=== PATIENT | female | born 1995 | race Caucasian/White ===

== ENCOUNTER 2017-08-20 17:48 | Emergency (ER) | payer MEDICARE, MEDICAID ==
[~2017-08-20] VITALS: Ht 152.4 cm; Wt 42.6 kg
[~2017-08-20 17:48] MED LIST: ACYCLOVIR 400400 MG PO; ADVAIR; ALBUTEROL; AMLODIPINE BESY10 MG PO; AUGMENTIN 875875 MG PO; AZITHROMYCIN 2250 MG PO; BINDER TOP; CATAPRES0.1 MG PO; CEFUROXIME250 MG PO; CLONIDINE HCL0.3 M3 PO; DOXYCYCLINE 10100 MG PO; HYDROCODONE-AP1 EAC6 PO; LEVAQUIN 500 M500 M2 PO; LEVAQUIN 500 M500 MG PO; LIDOCAINE VISC100 ML TOP; LOPRESSOR25 PO; MEDROLDOSEPACK PO; NOHOMEMEDICATIONS; NORCO 5-325 TA1 EACH PO; NORVASC5 MG PO; PERCOCET 5-3251 EACH PO; PREDNISONE 10 M10 MG PO; REGLAN 10 MG TA10 MG PO; RENVELA800 MG PO; TRAMADOL 50 MG50 MG PO; TRIAMCINOLONE A15 G2 TP; UNICOMPLEX M TA1 TA1 PO; VENTOLIN HFA 1818 GM INH; VOLTAREN GEL 1100 G2 TOP; ZANTAC 150MG T150 MG PO; ZOFRAN ODT4 MG PO
[2017-08-20] MEDS ORDERED: DOXYCYCLINE 10100 MG PO (18:07)
[2017-08-20] MEDS ORDERED: ENOXAPARIN30 MG/0.3 SUBQ (18:08)
[2017-08-20 18:50] LABS: HEMATOCRIT 29.8 % (37.0-47.0); HEMOGLOBIN 9.4 gm/dL (12.0-15.0); MCH 28.1 pg (26.0-34.0); MCHC 31.6 g/dL (28.0-37.0); NUCLEATED RBCS 0 /100WBC; PLATELET COUNT* 330 thou/uL (150-400); RBC 3.35 mil/uL (4.20-5.00); RDW-CV 24.3 % (10.5-14.5); WBC 6.2 thou/uL (4.0-11.0)
[2017-08-20 18:59] LABS: APTT 28.9 Seconds (25.0-31.3); CALCIUM 10.4 mg/dL (8.5-10.1); CREATININE 3.5 mg/dL (0.6-1.3); INR 1.2; POTASSIUM 4.6 mmol/L (3.5-5.1); PROTIME 11.5 Seconds (9.20-11.50)
[2017-08-20 19:03] LABS: TOTAL BILIRUBIN 0.6 mg/dL (<0.1-1.0); TOTAL PROTEIN 7.7 g/dL (6.4-8.2)
[2017-08-20 19:12] VITALS: BP 175/126
[2017-08-20 19:25] LABS: ABSOLUTE LYMPHOCYTES 0.7 thou/uL (0.8-5.3); ABSOLUTE MONOCYTES 0.2 thou/uL (0.0-1.2); ABSOLUTE NEUTROPHILS 5.3 thou/uL (1.6-8.1); ANISOCYTOSIS 1+; HYPOCHROMASIA 1+; MICROCYTES 1+; PLATELET ESTIMATE ADEQUATE
== END 2017-08-20 19:15 | disposition home or self-care (01) ==
LOC: M.ERS 17:48
PROVIDERS: Physician Assistant
DX: S71.111A Laceration without foreign body, right thigh, initial encounter (principal); I12.0 Hypertensive chronic kidney disease with stage 5 chronic kidney disease or end stage renal disease; N18.6 End stage renal disease; J45.909 Unspecified asthma, uncomplicated; F32.9 Major depressive disorder, single episode, unspecified; F17.210 Nicotine dependence, cigarettes, uncomplicated; Z99.2 Dependence on renal dialysis; Z87.01 Personal history of pneumonia (recurrent); Z91.040 Latex allergy status; X58.XXXA Exposure to other specified factors, initial encounter; Y93.89 Activity, other specified; Y92.89 Other specified places as the place of occurrence of the external cause; Y99.8 Other external cause status

== ENCOUNTER 2017-09-12 21:37 | Emergency (ER) | payer MEDICARE, MEDICAID ==
[~2017-09-12] VITALS: Ht 152.4 cm; Wt 49.4 kg
[~2017-09-12 21:37] MED LIST changes: +ENOXAPARIN30 MG/0.3 SUBQ
[2017-09-12 23:03] LABS: ABSOLUTE BASOPHILS 0.1 thou/uL (0.0-0.2); ABSOLUTE EOSINOPHILS 0.1 thou/uL (0.0-0.7); ABSOLUTE LYMPHOCYTES 0.9 thou/uL (0.8-5.3); ABSOLUTE MONOCYTES 0.4 thou/uL (0.0-1.2); ABSOLUTE NEUTROPHILS 3.4 thou/uL (1.6-8.1); BASOPHILS 2.1 %; EOSINOPHILS 1.9 %; HEMATOCRIT 32.6 % (37.0-47.0); HEMOGLOBIN 10.6 gm/dL (12.0-15.0); LYMPHOCYTES 18.5 %; MCH 31.7 pg (26.0-34.0); MCHC 32.5 g/dL (28.0-37.0); MCV 97.7 fL (80.0-100.0); MONOCYTES 8.7 %; MPV 7.9 fl. (7.2-11.1); NUCLEATED RBCS 0 /100WBC; PLATELET COUNT* 200 thou/uL (150-400); POLYS 68.8 %; RBC 3.34 mil/uL (4.20-5.00); RDW-CV 24.2 % (10.5-14.5); WBC 4.9 thou/uL (4.0-11.0)
[2017-09-12 23:07] LABS: CALCIUM 9.5 mg/dL (8.5-10.1); CREATININE 4.1 mg/dL (0.6-1.3); POTASSIUM 3.6 mmol/L (3.5-5.1)
[2017-09-13 00:03] LABS: ANISOCYTOSIS 1+; MACROCYTES Occasional; MICROCYTES Occasional; OVALOCYTES Occasional; POIKILOCYTOSIS 1+; SCHISTOCYTES Occasional
[2017-09-13 02:16] VITALS: BP 160/115
== END 2017-09-13 02:18 | disposition home or self-care (01) ==
LOC: M.ERS 21:37
PROVIDERS: Personal Emergency Response Attendant
DX: Z48.01 Encounter for change or removal of surgical wound dressing (principal); J45.909 Unspecified asthma, uncomplicated; F32.9 Major depressive disorder, single episode, unspecified; I12.0 Hypertensive chronic kidney disease with stage 5 chronic kidney disease or end stage renal disease; N18.6 End stage renal disease; F17.210 Nicotine dependence, cigarettes, uncomplicated; Z91.040 Latex allergy status

== ENCOUNTER 2017-10-04 17:15 | Emergency (ER) | payer MEDICARE, MEDICAID ==
[~2017-10-04] VITALS: Ht 152.4 cm; Wt 47.6 kg
[2017-10-04 18:05] VITALS: BP 207/152
== END 2017-10-04 18:07 | disposition home or self-care (01) ==
LOC: M.ERS 17:15
DX: R10.2 Pelvic and perineal pain (principal); J45.909 Unspecified asthma, uncomplicated; F32.9 Major depressive disorder, single episode, unspecified; I12.0 Hypertensive chronic kidney disease with stage 5 chronic kidney disease or end stage renal disease; N18.6 End stage renal disease; F17.210 Nicotine dependence, cigarettes, uncomplicated; Z99.2 Dependence on renal dialysis; Z91.041 Radiographic dye allergy status

== ENCOUNTER 2017-10-29 14:54 | Emergency (ER) | payer MEDICARE, MEDICAID ==
[~2017-10-29] VITALS: Ht 152.4 cm; Wt 47.6 kg
[2017-10-29 15:54] VITALS: BP 176/125
== END 2017-10-29 15:55 | disposition home or self-care (01) ==
LOC: M.ERS 14:54
DX: M79.602 Pain in left arm (principal); J45.909 Unspecified asthma, uncomplicated; I12.0 Hypertensive chronic kidney disease with stage 5 chronic kidney disease or end stage renal disease; N18.6 End stage renal disease; Z99.2 Dependence on renal dialysis; F17.210 Nicotine dependence, cigarettes, uncomplicated; Z91.040 Latex allergy status

== ENCOUNTER 2017-11-21 19:59 | Emergency (ER) | payer MEDICARE, MEDICAID ==
[~2017-11-21] VITALS: Ht 154.9 cm; Wt 49.9 kg
[2017-11-21] MEDS ORDERED: ACYCLOVIR 400400 MG PO (20:12)
[2017-11-21 20:36] LABS: ABSOLUTE BASOPHILS 0.1 thou/uL (0.0-0.2); ABSOLUTE LYMPHOCYTES 1.3 thou/uL (0.8-5.3); ABSOLUTE MONOCYTES 0.5 thou/uL (0.0-1.2); ABSOLUTE NEUTROPHILS 3.1 thou/uL (1.6-8.1); BASOPHILS 1.5 %; HEMATOCRIT 39.6 % (37.0-47.0); HEMOGLOBIN 12.5 gm/dL (12.0-15.0); MCHC 31.5 g/dL (28.0-37.0); MCV 92.2 fL (80.0-100.0); MONOCYTES 10.6 %; MPV 8.3 fl. (7.2-11.1); NUCLEATED RBCS 0 /100WBC; PLATELET COUNT* 205 thou/uL (150-400); POLYS 61.9 %; RDW-CV 17.1 % (10.5-14.5)
[2017-11-21 20:41] LABS: CALCIUM 10.6 mg/dL (8.5-10.1); CREATININE 5.3 mg/dL (0.6-1.3); POTASSIUM 5.1 mmol/L (3.5-5.1)
[2017-11-21 20:46] LABS: ALBUMIN 3.4 g/dL (3.4-5.0); TOTAL BILIRUBIN 0.8 mg/dL (<0.1-1.0); TOTAL PROTEIN 7.5 g/dL (6.4-8.2)
[2017-11-21 22:15] VITALS: BP 186/140
== END 2017-11-21 22:18 | disposition home or self-care (01) ==
LOC: M.ERS 19:59
PROVIDERS: Emergency Medicine
DX: R10.13 Epigastric pain (principal); R10.33 Periumbilical pain; I10 Essential (primary) hypertension; J45.909 Unspecified asthma, uncomplicated; N18.6 End stage renal disease; F32.9 Major depressive disorder, single episode, unspecified; F17.210 Nicotine dependence, cigarettes, uncomplicated; Z91.040 Latex allergy status; Z99.2 Dependence on renal dialysis

== ENCOUNTER 2018-03-26 13:11 | Inpatient (IN) | payer MEDICARE, MEDICAID ==
[~2018-03-26] VITALS: Ht 165.1 cm; Wt 49.9 kg
--- NOTE | ~2018-03-26 | PROC ---
[facility] [address] [place] [address] PROCEDURE REPORT Name: CALSO ROSARIO Room: [address] IN .R.#: [id number] Admission: 03/26/18 Attend Phys: Ravi Brown, Discharge: Date of : 94 Report #: [id number] THIS REPORT FOR: //name// For GI report, please see the Provation report in Perceptive 7 content. By: [id number] Records Staff JULIETTE /LIDYA
[2018-03-26 13:26] VITALS: BP 212/157
[2018-03-26 13:59] LABS: ABSOLUTE BASOPHILS 0.1 thou/uL (0.0-0.2); ABSOLUTE EOSINOPHILS 0.1 thou/uL (0.0-0.7); ABSOLUTE LYMPHOCYTES 1.1 thou/uL (0.8-5.3); ABSOLUTE MONOCYTES 0.6 thou/uL (0.0-1.2); ABSOLUTE NEUTROPHILS 5.6 thou/uL (1.6-8.1); EOSINOPHILS 1.3 %; HEMATOCRIT 36.6 % (37.0-47.0); HEMOGLOBIN 11.5 gm/dL (12.0-15.0); LYMPHOCYTES 14.3 %; MCH 28.9 pg (26.0-34.0); MCHC 31.3 g/dL (28.0-37.0); MCV 92.6 fL (80.0-100.0); MONOCYTES 7.5 %; MPV 8.4 fl. (7.2-11.1); NUCLEATED RBCS 0 /100WBC; PLATELET COUNT* 267 thou/uL (150-400); POLYS 74.9 %; RBC 3.96 mil/uL (4.20-5.00); RDW-CV 17.6 % (10.5-14.5); WBC 7.5 thou/uL (4.0-11.0)
[2018-03-26 14:06] LABS: CALCIUM 9.7 mg/dL (8.5-10.1); CREATININE 6.1 mg/dL (0.6-1.3); POTASSIUM 4.7 mmol/L (3.5-5.1)
[2018-03-26 14:11] LABS: ALBUMIN 3.6 g/dL (3.4-5.0); MAGNESIUM 2.1 mg/dL (1.8-2.4); TOTAL PROTEIN 7.9 g/dL (6.4-8.2)
[2018-03-26] MEDS ORDERED: HYDROCODON-ACE1 EAC7 PO (16:57)
[2018-03-26 17:54] VITALS: BP 133/94
[2018-03-26 20:15] VITALS: BP 130/98
[2018-03-26 20:35] VITALS: BP 155/116
[2018-03-26 22:30] VITALS: BP 212/157
[2018-03-26 23:30] VITALS: BP 183/127
[2018-03-27] VITALS (25 sets, daily range): BP systolic 132–203; BP diastolic 66–121
[2018-03-27 04:49] LABS: BE -3.3 mmol/L (-2 to +3); HCO3 19.1 mmol/L (22.0-26.0); PCO2 26.8 mmHg (35.0-45.0); PO2 64.1 mmHg (75.0-100.0)
[2018-03-27 04:54] LABS: ABSOLUTE BASOPHILS 0.1 thou/uL (0.0-0.2); ABSOLUTE LYMPHOCYTES 0.9 thou/uL (0.8-5.3); ABSOLUTE NEUTROPHILS 7.3 thou/uL (1.6-8.1); BASOPHILS 0.7 %; EOSINOPHILS 0.1 %; HEMOGLOBIN 11.2 gm/dL (12.0-15.0); LYMPHOCYTES 10.1 %; MCH 29.3 pg (26.0-34.0); MCHC 31.2 g/dL (28.0-37.0); MCV 93.8 fL (80.0-100.0); MONOCYTES 10.7 %; MPV 8.6 fl. (7.2-11.1); NUCLEATED RBCS 0 /100WBC; PLATELET COUNT* 250 thou/uL (150-400); POLYS 78.4 %; RBC 3.83 mil/uL (4.20-5.00); WBC 9.3 thou/uL (4.0-11.0)
[2018-03-27 05:18] LABS: CALCIUM 9.5 mg/dL (8.5-10.1)
[2018-03-27 05:53] LABS: POTASSIUM 6.2 mmol/L (3.5-5.1)
[2018-03-27 13:14] LABS: ABSOLUTE BASOPHILS 0.1 thou/uL (0.0-0.2); ABSOLUTE EOSINOPHILS 0.1 thou/uL (0.0-0.7); ABSOLUTE LYMPHOCYTES 1.5 thou/uL (0.8-5.3); ABSOLUTE MONOCYTES 0.8 thou/uL (0.0-1.2); ABSOLUTE NEUTROPHILS 4.5 thou/uL (1.6-8.1); BASOPHILS 1.2 %; EOSINOPHILS 0.9 %; HEMATOCRIT 32.1 % (37.0-47.0); HEMOGLOBIN 10.2 gm/dL (12.0-15.0); LYMPHOCYTES 21.3 %; MCH 29.3 pg (26.0-34.0); MCHC 31.7 g/dL (28.0-37.0); MCV 92.5 fL (80.0-100.0); MONOCYTES 11.4 %; MPV 8.9 fl. (7.2-11.1); NUCLEATED RBCS 0 /100WBC; PLATELET COUNT* 247 thou/uL (150-400); POLYS 65.2 %; RBC 3.47 mil/uL (4.20-5.00); RDW-CV 17.8 % (10.5-14.5); WBC 6.9 thou/uL (4.0-11.0)
[2018-03-27 13:20] LABS: APTT 29.3 Seconds (25.0-31.3); CREATININE 7.4 mg/dL (0.6-1.3); INR 2.1; PROTIME 20.7 Seconds (9.20-11.50)
[2018-03-27 13:24] LABS: ALBUMIN 2.8 g/dL (3.4-5.0); MAGNESIUM 2.1 mg/dL (1.8-2.4); PHOSPHORUS* 8.6 mg/dL (2.5-4.9); TOTAL BILIRUBIN 1.2 mg/dL (<0.1-1.0); TOTAL PROTEIN 6.2 g/dL (6.4-8.2)
[2018-03-27 17:48] LABS: CREATININE 4.5 mg/dL (0.6-1.3); POTASSIUM 3.5 mmol/L (3.5-5.1)
[2018-03-28] VITALS (11 sets, daily range): BP systolic 118–206; BP diastolic 66–89
[2018-03-28 06:01] LABS: HEMATOCRIT 31.4 % (37.0-47.0); MCH 29.4 pg (26.0-34.0); MCHC 31.9 g/dL (28.0-37.0); MPV 8.2 fl. (7.2-11.1); RBC 3.41 mil/uL (4.20-5.00); RDW-CV 17.9 % (10.5-14.5); WBC 5.8 thou/uL (4.0-11.0)
[2018-03-28 06:33] LABS: ALBUMIN 2.5 g/dL (3.4-5.0); CALCIUM 8.1 mg/dL (8.5-10.1); CREATININE 5.2 mg/dL (0.6-1.3); MAGNESIUM 1.9 mg/dL (1.8-2.4); PHOSPHORUS* 6.2 mg/dL (2.5-4.9); POTASSIUM 3.8 mmol/L (3.5-5.1); TOTAL BILIRUBIN 0.9 mg/dL (<0.1-1.0); TOTAL PROTEIN 5.5 g/dL (6.4-8.2)
[2018-03-28 08:40] LABS: INR 1.8; PROTIME 17.5 Seconds (9.20-11.50)
--- NOTE | 2018-03-28 15:00 | 2DMMODE ---
[place] [address] 2 D/M-MODE ECHOCARDIOGRAM Name: CALOS ROSARIO Room: [address] ADM IN M.R.#: [id number] Admission: 03/26/18 Attend Phys: Ravi Baca Discharge: Date of : 89 Date of Service: 03/28/18 1459 Report #: [id number] THIS REPORT FOR: //name// APPROVED REPORT Study performed: 03/28/2018 09:34:55 EXAM: Comprehensive 2D, Doppler, and color-flow Echocardiogram Patient Location: Bedside BSA: 1.47 HR: 77 bpm BP: 164/82 mmHg Other Information Study Quality: Good Indications Pericardial Effusion 2D Dimensions LVEF(%): 73.06 (>50%) IVSd: 14.34 (7-11mm) LVOT Diam: 16.63 (18-24mm) LVDd: 45.42 mm PWd: 12.37 (7-11mm) Ascending Ao: 28.92 (22-36mm) LVDs: 26.36 (25-40mm) Aortic Root: 26.48 mm Ritter's LVEF: 73.06 % Volumes Left Atrial Volume (Systole) LA ESV Index: 58.80 mL/m2 Aortic Valve AoV Peak Bruno.: 3.18 m/s AO Peak Gr.: 40.39 mmHg LVOT Max P.26 mmHg AO Mean Gr.: 19.76 mmHg LVOT Mean P.92 mmHg LVOT Max V: 1.15 m/s AO V2 VTI: 47.18 cm LVOT Mean V: 0.78 m/s ASIF (VTI): 1.08 cm2 LVOT V1 VTI: 23.47 cm Mitral Valve MV Mean Gr.: 9.20 mmHg E/A Ratio: 1.28 MV Decel. Time: 300.61 ms MV E Max Bruno.: 1.64 m/[place] [address] 2 D/M-MODE ECHOCARDIOGRAM Name: KARSTENNICHOLASCALOS R Room: [address] IN .R.#: [id number] Admission: 03/26/18 Attend Phys: Ravi Baca Discharge: Date of : 94 Date of Service: 03/28/18 1459 Report #: [id number] MV PHT: 87.18 ms MVA (PHT): 2.52 cm2 TDI E/Lateral E': 23.43 E/Medial E': 27.33 Medial E' Bruno.: 0.06 m/s Lateral E' Bruno.: 0.07 m/s Pulmonary Valve PV Peak Bruno.: 0.90 m/s PV Peak Gr.: 3.26 mmHg Tricuspid Valve RAP Estimate: 20.00 mmHg TR Peak Gr.: 36.75 mmHg RVSP: 56.75 mmHg PA Pressure: 56.75 mmHg Left Ventricle The left ventricle is normal size. There is normal LV segmental wall motion. Moderate concentric left ventricular hypertrophy. Myocardium had a speckled pattern suggestive of an infiltrative process Left ventricular systolic function is hyperdynamic. LVEF is 65-70%. The left ventricular diastolic function is normal. Right Ventricle The right ventricle is normal size. The right ventricular systolic function is normal. Atria Left atrium is moderately dilated. Right atrium is moderately dilated. Aortic Valve The Aortic valve is sclerotic. Trace aortic regurgitation. Mild to moderate aortic stenosis. Mitral Valve There is mitral annular calcification. Mitral valve leaflets are thickened. Trace mitral regurgitation. Mild mitral stenosis. Tricuspid Valve The tricuspid valve is normal in structure. Severe tricuspid regurgitation. estimated pa pressure 45 mm Hg Pulmonic Valve The pulmonary valve is normal in [place] [address] 2 D/M-MODE ECHOCARDIOGRAM Name: KARSTENNICHOLASCALOS Room: [address] IN [facility].#: [id number] Admission: 03/26/18 Attend Phys: Ravi Baca Discharge: Date of : 89 Date of Service: 03/28/18 1459 Report #: [id number] regurgitation. Great Vessels The aortic root is normal in size. The IVC is dilated. Pericardium Small pericardial effusion. <Conclusion> Moderate concentric left ventricular hypertrophy. Myocardium had a speckled pattern suggestive of an infiltrative process LVEF is 65-70%. Left atrium is moderately dilated. Right atrium is moderately dilated. Mild to moderate aortic stenosis. Mild mitral stenosis. Severe tricuspid regurgitation. estimated pa pressure 45 mm Hg Small pericardial effusion. <ELECTRONICALLY SIGNED> By: Drew Wilkins MD, [facility] 03/28/18 1459 58 58 Drew Wilkins MD, FACC /INF
[2018-03-28 23:09] LABS: HEPATITIS B SURFACE AG Negative (Negative)
[2018-03-29] VITALS: BP 108/69
[2018-03-29 04:00] VITALS: BP 115/75
[2018-03-29 05:08] LABS: HEMATOCRIT 31.1 % (37.0-47.0); MCH 29.7 pg (26.0-34.0); MCHC 32.1 g/dL (28.0-37.0); MCV 92.4 fL (80.0-100.0); MPV 8.5 fl. (7.2-11.1); RBC 3.37 mil/uL (4.20-5.00); RDW-CV 17.5 % (10.5-14.5); WBC 6.5 thou/uL (4.0-11.0)
[2018-03-29 05:38] LABS: ALBUMIN 2.4 g/dL (3.4-5.0); CALCIUM 8.7 mg/dL (8.5-10.1); MAGNESIUM 2.1 mg/dL (1.8-2.4); PHOSPHORUS* 5.8 mg/dL (2.5-4.9); POTASSIUM 4.2 mmol/L (3.5-5.1)
[2018-03-29 11:25] VITALS: BP 139/88
[2018-03-29 12:00] VITALS: BP 139/88
--- NOTE | 2018-03-29 12:32 | CON ---
[address] [address] CONSULTATION Name: CALOS ROSARIO Room: [address] IN M.R.#: [id number] Admission: 03/26/18 Attend Phys: Ravi Brown, Discharge: Date of : 94 Report #: [id number] THIS REPORT FOR: //name// CC: Subhash Quirino Brown DATE OF SERVICE: 03/27/2018 REASON FOR CONSULT: Nausea, vomiting, abdominal pain and abnormal CT. HISTORY OF PRESENT ILLNESS: This is a 23-year-old female with history of end-stage kidney disease, who get usually dialyzed on Tuesdays, and Saturdays. The patient apparently did not get dialyzed yesterday and her potassium is 6.2. She also has lactic acidosis with lactate of 8.8. She currently complains of diffuse pain. She denies any nausea at this time. She had a bowel movement early this morning that she feels that there may have been some blood in it. The patient reports that her kidney disease was due to a spider bite 4-1/2 years ago. The patient reports that she received fentanyl at ER for pain, which helped her. PAST MEDICAL HISTORY: Significant for history of chronic kidney disease, asthma, hypertension, depression, syphilis, recurrent pneumonitis. ALLERGIES: Significant to LATEX. MEDICATIONS: Please refer to MAR. SOCIAL HISTORY: The patient lives with father at home. Denies alcohol or drug use. She admits to smoking cigarettes. FAMILY HISTORY: Noncontributory. PHYSICAL EXAMINATION: VITAL SIGNS: Reveals blood pressure of 160/84, respiration 24, pulse 89, temperature 97.7. LUNGS: Clear. CARDIOVASCULAR: Regular rate. ABDOMEN: Soft, tender to palpation in the epigastric region. Bowel sounds are positive. NEUROLOGIC: The patient is alert, oriented times 3. LABORATORY DATA: Labs revealed sodium of 140, potassium 6.2, BUN is 24, creatinine 7.0, glucose is 67, and total bilirubin is 1.0. Lipase is 214. [place] [address] CONSULTATION Name: CALOS ROSARIO Room: [address] IN [facility].#: [id number] Admission: 03/26/18 Attend Phys: Ravi Brown, Discharge: Date of : 94 Report #: [id number] Phosphorus is 8.0, alkaline phosphatase is 164. Liver function tests are all within normal limit. Troponin is 1.06. Lactic [place] 8[place] [address]. WBC is 9.3 with hemoglobin of 11.2 and platelet of 250. IMAGING: CT of abdomen and pelvis was obtained, which showed [id number] size pericardial effusion with four-quadrant ascites. Chest x-ray shows bilateral interstitial infiltrates and pulmonary venous congestion with cardiomegaly, which may be concerning for pulmonary edema. ASSESSMENT AND PLAN: The patient with history of chronic kidney disease, requiring dialysis, who has missed her dialysis yesterday and now has potassium of 6.2 and acidosis. She also has four-quadrant ascites and pericardial effusion. She has had report of hematemesis even though she denies. We will put her on Protonix and continue monitoring her hemoglobin. Once she is stabilized, she will need an esophagogastroduodenoscopy to further investigate her epigastric pain and anemia. <ELECTRONICALLY SIGNED> By: Cynthia Sands MD 03/29/18 1232 1234 0124Cynthia Sands MD /nt
[2018-03-29 16:00] VITALS: BP 128/85
--- NOTE | 2018-03-29 16:50 | EKG ---
[place] [address] ELECTROCARDIOGRAM REPORT Name: CALOS ROSARIO Room: [address] ADM IN M.R.#: [id number] Admission: 03/26/18 Attend Phys: Ravi Brown, Discharge: Date of : 94 Report #: [id number] THIS REPORT FOR: //name// 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 Doctor: MONIE : 1995 Requested By: Andreas Vang Order Number: [id number] Fili MD: Douglas Be Measurements Intervals [place] Rate: 73 P: 24 KS: 132 QRS: -15 QRSD: 104 T: 30 QT: 472 QTc: 521 Interpretive Statements Sinus rhythm Left atrial enlargement Borderline left axis deviation Prolonged QT interval Compared to ECG 08/06/2017 21:15:00 Prolonged QT interval now present Sinus tachycardia no longer present Left ventricular hypertrophy no longer present Early repolarization no longer present Electronically Signed On 03-29-2018 16:50:37 CDT by Douglas Be [email or web address] <ELECTRONICALLY SIGNED> By: Douglas Be MD, FACC 03/29/18 1650 1353 1353 Douglas Be MD, FAC /EPI
[2018-03-29 22:21] VITALS: BP 128/83
[2018-03-30] VITALS: BP 118/80
[2018-03-30 04:00] VITALS: BP 120/73
[2018-03-30 05:31] LABS: ALBUMIN 2.2 g/dL (3.4-5.0); CALCIUM 8.1 mg/dL (8.5-10.1); POTASSIUM 4.5 mmol/L (3.5-5.1); TOTAL BILIRUBIN 0.6 mg/dL (<0.1-1.0); TOTAL PROTEIN 5.5 g/dL (6.4-8.2)
[2018-03-30 08:15] VITALS: BP 100/60
[2018-03-30 08:23] VITALS: BP 100/60
[2018-03-30 12:00] VITALS: BP 127/79
[2018-03-30 20:00] VITALS: BP 114/75
[2018-03-31] VITALS: BP 111/63; BP 140/61
[2018-03-31 04:00] VITALS: BP 126/83
[2018-03-31 05:20] LABS: HEMATOCRIT 37.7 % (37.0-47.0); HEMOGLOBIN 11.9 gm/dL (12.0-15.0); MCH 29.7 pg (26.0-34.0); MCHC 31.5 g/dL (28.0-37.0); MCV 94.3 fL (80.0-100.0); MPV 8.7 fl. (7.2-11.1); RDW-CV 18.3 % (10.5-14.5); WBC 3.9 thou/uL (4.0-11.0)
[2018-03-31 07:39] LABS: ALBUMIN 2.3 g/dL (3.4-5.0); CALCIUM 8.4 mg/dL (8.5-10.1); MAGNESIUM 1.8 mg/dL (1.8-2.4); POTASSIUM 5.2 mmol/L (3.5-5.1); TOTAL BILIRUBIN 0.6 mg/dL (<0.1-1.0); TOTAL PROTEIN 5.8 g/dL (6.4-8.2)
[2018-03-31 07:45] VITALS: BP 124/82; BP 145/95
[2018-03-31 07:49] LABS: CREATININE 5.4 mg/dL (0.6-1.3)
[2018-03-31 14:30] VITALS: BP 132/85
[2018-03-31 16:00] VITALS: BP 152/95
[2018-03-31 20:00] VITALS: BP 146/78
[2018-04-01] VITALS: BP 144/93
[2018-04-01 04:00] VITALS: BP 131/88
[2018-04-01 08:15] VITALS: BP 146/104
[2018-04-01] MEDS ORDERED: FIRVANQ50 MG/1 ML PO (10:13)
[2018-04-01 11:53] VITALS: BP 110/69
[2018-04-01 12:22] VITALS: BP 110/69
[2018-04-01 15:17] VITALS: BP 126/78
--- NOTE | 2018-04-04 15:07 | PATH ---
[address] [address] PATHOLOGY RPT PROCEDURE Name: CALOS SIMS Room: [address] IN M.R.#: [id number] Admission: 03/26/18 Date of : 94 Discharge: 04/01/18 Report #: [id number] Path Case #: [id number] [facility] Accession Number: [id number] . 01 Material submitted: . GASTRIC BIOPSY FOR H.PYLORI . 01 Clinician provided ICD-10: K92.2 N18.6 . 01 Clinical history: . None provided . 02 Diagnosis: Gastric biopsy: - Mild non-specific chronic and active gastritis with mild fibrosis, negative for Helicobacter pylori organisms, granulomas and dysplasia. (SPENSER/db; 04/01/18) LBQ/04/01/2018 . 02 Comment: Special stain: H. pylori immuno . 02 Electronically signed: . Champ Stoll MD, Pathologist NPI- [id number] . 01 Gross description: . Received in formalin labeled "Calos Sims, gastric biopsy," are 4 segments of del rosario soft tissue measuring 1.1 x 0.9 x 0.2 cm in aggregate dimensions and ranging from 0.3 to 0.5 cm in maximum dimension. The specimen is submitted entirely in cassette A1. (TSD; 03/31/2018) TOB/TOB . 02 Pathologist provided ICD-10: K29.50 . 02 CPT . 133574, B32387 Performed at: [address], [place], [place] [id number] MD Kanu Serrano MD Phone: [phone] Performed at: [address] [id number] [address] [address] PATHOLOGY RPT PROCEDURE Name: MOLINA SIMSFAYE Victor Room: [address] IN [facility].#: [id number] Admission: 03/26/18 Date of : 94 Discharge: 04/01/18 Report #: [id number] Path Case #: [id number] MD Champ Stoll MD Phone: [phone]
--- NOTE | 2018-04-11 15:14 | CON ---
[address] [address] CONSULTATION Name: CALOS ROSARIO Room: [address] IN M.R.#: [id number] Admission: 03/26/18 Attend Phys: Ravi Brown, Discharge: 04/01/18 Date of : 94 Report #: [id number] THIS REPORT FOR: //name// CC: Subhash Brown NEPHROLOGY CONSULTATION CONSULTING PHYSICIAN: Ravi Brown M.D. REASON FOR CONSULTATION: End-stage kidney disease. HISTORY OF PRESENT ILLNESS: This is a 23-year-old female who was admitted with nausea, vomiting and abdominal pain, not having any diarrhea. She did not complete her dialysis yesterday because of the above-mentioned symptoms. She was just hospitalized at [facility] and recently discharged. GI has been consulted. She has been made n.p.o. and is on IV Protonix. She has chronically poorly controlled blood pressures. There is some concern for sepsis. Blood cultures have been sent off and empiric antibiotics started. She appeared to be otherwise comfortable, other than the above-mentioned symptoms. REVIEW OF SYSTEMS: Constitutional, psych, heme, eyes, ENT, respiratory, cardiac, GI, , endocrine all negative, except as documented above. PAST MEDICAL HISTORY: End-stage kidney disease, hemodialysis Tuesdays, and Saturdays at the [facility]; history of hypertension; asthma; syphilis and history of substance abuse. FAMILY HISTORY: Not pertinent in this 23-year-old female. SOCIAL HISTORY: Positive for tobacco. PHYSICAL EXAMINATION: VITAL SIGNS: Blood pressure 175/85, pulse 87 and temperature 36.7. GENERAL: Not in any distress at the time I spoke to her. HEAD: Atraumatic. EYES: Open. NECK: Supple. LUNGS: No labored breathing. CARDIOVASCULAR: Regular rate. ABDOMEN: Distended. NEUROLOGIC: Alert, oriented. PSYCHIATRIC: Normal mood. LABORATORY DATA: White cell count 9.3, hemoglobin 11.2 and platelets 250,000. Sodium 140, potassium 6.2, chloride 98, bicarbonate 21, BUN 24, creatinine 7, glucose 67 and calcium 9.5. [place] [address] CONSULTATION Name: KARSTENNICHOLASCALOS Room: [address]#: [id number] Admission: 03/26/18 Attend Phys: Ravi Brown, Discharge: 04/01/18 Date of : 94 Report #: [id number] ASSESSMENT AND PLAN: 1. End-stage kidney disease, hemodialysis Wednesday, and Wednesday at the [facility]. We will arrange for her to dialyze today since she missed dialysis yesterday and she is also hyperkalemic. 2. Hyperkalemia, should correct with the dialysis today. We will use a low-potassium dialysate. We will reassess for dialysis needs tomorrow. 3. Hypertension, chronically poorly controlled. We will dialyze today. 4. I will follow closely for dialysis needs. Thank you for requesting my opinion in the care and management of this patient. <ELECTRONICALLY SIGNED> By: Devaughn Freeman MD 04/11/18 1514 1210 0124Abart Freeman MD /nt
== END 2018-04-01 15:35 | disposition home or self-care (01) | DRG 441 ==
LOC: M.ERS 13:11 → M.TBA-ER 18:27 → M.ICU 18:27 → M.3W 21:15 → M.ICU 03-27 11:51 → M.2W 03-28 15:13
PROVIDERS: Internal Medicine; Internal Medicine Gastroenterology; Personal Emergency Response Attendant; Surgery; ADMIT Family Medicine
PROC: 0W9G30Z Drainage of Peritoneal Cavity with Drainage Device, Percutaneous Approach (ICD-10-PCS; principal; 2018-03-28)
PROC: 0DB78ZX Excision of Stomach, Pylorus, Via Natural or Artificial Opening Endoscopic, Diagnostic (ICD-10-PCS; 2018-03-30)
DX: B17.9 Acute viral hepatitis, unspecified (principal); K29.71 Gastritis, unspecified, with bleeding; N18.6 End stage renal disease; K25.4 Chronic or unspecified gastric ulcer with hemorrhage; A04.72 Enterocolitis due to Clostridium difficile, not specified as recurrent; R18.8 Other ascites; R65.10 Systemic inflammatory response syndrome (SIRS) of non-infectious origin without acute organ dysfunction; E87.2 Acidosis; I42.9 Cardiomyopathy, unspecified; F11.20 Opioid dependence, uncomplicated; I12.0 Hypertensive chronic kidney disease with stage 5 chronic kidney disease or end stage renal disease; I31.3 Pericardial effusion (noninflammatory); Z60.2 Problems related to living alone; E87.70 Fluid overload, unspecified; K44.9 Diaphragmatic hernia without obstruction or gangrene; E83.119 Hemochromatosis, unspecified; I10 Essential (primary) hypertension; F32.9 Major depressive disorder, single episode, unspecified; E87.5 Hyperkalemia; J45.909 Unspecified asthma, uncomplicated; Z99.2 Dependence on renal dialysis; Z91.040 Latex allergy status; I16.0 Hypertensive urgency; Z79.899 Other long term (current) drug therapy; Z83.6 Family history of other diseases of the respiratory system; Z82.49 Family history of ischemic heart disease and other diseases of the circulatory system; Z91.15 Patient's noncompliance with renal dialysis; Z65.8 Other specified problems related to psychosocial circumstances; X58.XXXA Exposure to other specified factors, initial encounter; Y93.89 Activity, other specified; Y92.89 Other specified places as the place of occurrence of the external cause; Y99.8 Other external cause status

== ENCOUNTER 2018-04-04 13:36 | Emergency (ER) | payer MEDICARE, MEDICAID ==
[~2018-04-04] VITALS: Ht 149.9 cm; Wt 44.9 kg
[~2018-04-04 13:36] MED LIST changes: +FIRVANQ50 MG/1 ML PO; +HYDROCODON-ACE1 EAC7 PO
[2018-04-04 13:42] VITALS: BP 172/126
[2018-04-04 15:55] LABS: ABSOLUTE BASOPHILS 0.1 thou/uL (0.0-0.2); ABSOLUTE EOSINOPHILS 0.2 thou/uL (0.0-0.7); ABSOLUTE LYMPHOCYTES 1.2 thou/uL (0.8-5.3); ABSOLUTE MONOCYTES 0.7 thou/uL (0.0-1.2); ABSOLUTE NEUTROPHILS 7.9 thou/uL (1.6-8.1); BASOPHILS 1.2 %; EOSINOPHILS 1.5 %; HEMOGLOBIN 12.2 gm/dL (12.0-15.0); LYMPHOCYTES 12.3 %; MCHC 32.2 g/dL (28.0-37.0); MCV 89.9 fL (80.0-100.0); MONOCYTES 6.8 %; MPV 8.1 fl. (7.2-11.1); NUCLEATED RBCS 0 /100WBC; PLATELET COUNT* 286 thou/uL (150-400); POLYS 78.2 %; RBC 4.22 mil/uL (4.20-5.00); RDW-CV 17.6 % (10.5-14.5); WBC 10.1 thou/uL (4.0-11.0)
[2018-04-04 16:27] LABS: CK-MB MASS 0.6 ng/mL (<0.5-3.6); CREATININE 5.2 mg/dL (0.6-1.3); POTASSIUM 5.7 mmol/L (3.5-5.1); TOTAL BILIRUBIN 0.7 mg/dL (<0.1-1.0); TOTAL PROTEIN 6.6 g/dL (6.4-8.2); TROPONIN-I LEVEL 0.22 ng/mL (<0.06)
[2018-04-04 16:42] LABS: ALBUMIN 2.5 g/dL (3.4-5.0); CALCIUM 8.7 mg/dL (8.5-10.1)
[2018-04-04 18:01] VITALS: BP 184/135
--- NOTE | 2018-04-05 09:38 | EKG ---
[place] [address] ELECTROCARDIOGRAM REPORT Name: CALOS ROSARIO Room: [facility]#: [id number] Admission: 04/04/18 Attend Phys: Discharge: 04/04/18 Date of : 94 Report #: [id number] THIS REPORT FOR: //name// [facility] ED Test Date: 2018-04-04 Test Time: 14:04:22 Pat Name: CALOS SHELLEYNICHOLAS Department: Room: 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: : 1995 Requested By: Albert Gloria Order Number: [id number] MD: Douglas Be Measurements Intervals [place] Rate: 118 P: 47 LA: 119 QRS: -48 QRSD: 88 T: 41 QT: 320 QTc: 449 Interpretive Statements Sinus tachycardia Ventricular premature complex Left atrial enlargement Left anterior fascicular block Anterior infarct, old Compared to ECG 03/29/2018 13:53:07 Ventricular premature complex(es) now present Left anterior fascicular block now present Myocardial infarct finding now present Sinus rhythm no longer present Prolonged QT interval no longer present Electronically Signed On 04-05-2018 9:38:32 CDT by Douglas Be [email or web address] <ELECTRONICALLY SIGNED> By: Doulgas Be MD, FAC 04/05/18 0938 1404 1404 Douglas Be MD, [facility] /EPI
== END 2018-04-04 18:02 | disposition still patient (30) ==
LOC: M.ERS 13:36 → M.TBA-ER 16:55 → M.ERS 18:02
PROVIDERS: Nurse Practitioner Psychiatric/Mental Health
DX: I12.0 Hypertensive chronic kidney disease with stage 5 chronic kidney disease or end stage renal disease (principal); N18.6 End stage renal disease; E87.5 Hyperkalemia; J90 Pleural effusion, not elsewhere classified; R79.89 Other specified abnormal findings of blood chemistry; I16.9 Hypertensive crisis, unspecified; R53.1 Weakness; J45.909 Unspecified asthma, uncomplicated; F32.9 Major depressive disorder, single episode, unspecified; F17.210 Nicotine dependence, cigarettes, uncomplicated; Z99.2 Dependence on renal dialysis; Z91.040 Latex allergy status

== ENCOUNTER 2018-04-30 15:26 | Emergency (ER) | payer MEDICARE, MEDICAID ==
[~2018-04-30] VITALS: Ht 149.9 cm; Wt 44.9 kg
[2018-04-30] MEDS ORDERED: TOPROL XL25 MG PO (15:49)
[2018-04-30] MEDS ORDERED: COUMADIN 1MG TAB1 M1 PO (15:49)
[2018-04-30] MEDS ORDERED: RENVELA800 MG PO (15:49)
[2018-04-30] MEDS ORDERED: SENSIPAR 30 MG30 M1 PO (15:49)
[2018-04-30 16:56] LABS: ABSOLUTE BASOPHILS 0.1 thou/uL (0.0-0.2); ABSOLUTE EOSINOPHILS 0.1 thou/uL (0.0-0.7); ABSOLUTE LYMPHOCYTES 1.1 thou/uL (0.8-5.3); ABSOLUTE MONOCYTES 0.5 thou/uL (0.0-1.2); ABSOLUTE NEUTROPHILS 3.6 thou/uL (1.6-8.1); BASOPHILS 2.2 %; EOSINOPHILS 1.9 %; HEMATOCRIT 31.8 % (37.0-47.0); HEMOGLOBIN 10.3 gm/dL (12.0-15.0); LYMPHOCYTES 19.9 %; MCH 29.8 pg (26.0-34.0); MCHC 32.5 g/dL (28.0-37.0); MCV 91.6 fL (80.0-100.0); MONOCYTES 9.4 %; MPV 8.4 fl. (7.2-11.1); NUCLEATED RBCS 0 /100WBC; PLATELET COUNT* 219 thou/uL (150-400); POLYS 66.6 %; RBC 3.47 mil/uL (4.20-5.00); RDW-CV 20.1 % (10.5-14.5); WBC 5.3 thou/uL (4.0-11.0)
[2018-04-30 17:03] LABS: APTT 26.6 Seconds (25.0-31.3); CALCIUM 7.5 mg/dL (8.5-10.1); CREATININE 5.8 mg/dL (0.6-1.3); INR 1.2; POTASSIUM 4.3 mmol/L (3.5-5.1); PROTIME 12.5 Seconds (9.20-11.50)
[2018-04-30 17:07] LABS: ALBUMIN 2.6 g/dL (3.4-5.0); TOTAL BILIRUBIN 0.5 mg/dL (<0.1-1.0); TOTAL PROTEIN 6.7 g/dL (6.4-8.2)
[2018-04-30 18:11] LABS: ANISOCYTOSIS 1+; PLATELET ESTIMATE ADEQUATE
[2018-04-30 18:13] LABS: POIKILOCYTOSIS Occasional
[2018-04-30] MEDS ORDERED: CEFDINIR300 MG PO (19:19)
[2018-04-30 19:47] VITALS: BP 146/112
== END 2018-04-30 19:49 | disposition home or self-care (01) ==
LOC: M.ERS 15:26
PROVIDERS: Nurse Practitioner Family
DX: J18.9 Pneumonia, unspecified organism (principal); R79.1 Abnormal coagulation profile; R10.84 Generalized abdominal pain; I12.0 Hypertensive chronic kidney disease with stage 5 chronic kidney disease or end stage renal disease; N18.6 End stage renal disease; J45.909 Unspecified asthma, uncomplicated; F32.9 Major depressive disorder, single episode, unspecified; F17.210 Nicotine dependence, cigarettes, uncomplicated; Z99.2 Dependence on renal dialysis; Z91.040 Latex allergy status

== ENCOUNTER 2018-05-15 19:58 | Emergency (ER) | payer MEDICARE, MEDICAID ==
[~2018-05-15] VITALS: Ht 149.9 cm; Wt 52.6 kg
[~2018-05-15 19:58] MED LIST changes: +CEFDINIR300 MG PO; +COUMADIN 1MG TAB1 M1 PO; +SENSIPAR 30 MG30 M1 PO; +TOPROL XL25 MG PO
[2018-05-15 21:31] VITALS: BP 159/118
== END 2018-05-15 21:33 | disposition home or self-care (01) ==
LOC: M.ERS 19:58
DX: M79.604 Pain in right leg (principal); J45.909 Unspecified asthma, uncomplicated; I12.0 Hypertensive chronic kidney disease with stage 5 chronic kidney disease or end stage renal disease; N18.6 End stage renal disease; F17.210 Nicotine dependence, cigarettes, uncomplicated; Z99.2 Dependence on renal dialysis; Z91.040 Latex allergy status

== ENCOUNTER 2018-06-09 22:49 | Emergency (ER) | payer MEDICARE, MEDICAID ==
[~2018-06-09] VITALS: Ht 149.9 cm; Wt 62.1 kg
[2018-06-09 23:59] VITALS: BP 197/154
== END 2018-06-10 | disposition home or self-care (01) ==
LOC: M.ERS 22:49
DX: S41.102A Unspecified open wound of left upper arm, initial encounter (principal); S00.81XA Abrasion of other part of head, initial encounter; J45.909 Unspecified asthma, uncomplicated; F32.9 Major depressive disorder, single episode, unspecified; I12.0 Hypertensive chronic kidney disease with stage 5 chronic kidney disease or end stage renal disease; N18.6 End stage renal disease; F17.210 Nicotine dependence, cigarettes, uncomplicated; Z99.2 Dependence on renal dialysis; Z87.01 Personal history of pneumonia (recurrent); Z91.040 Latex allergy status; X58.XXXA Exposure to other specified factors, initial encounter; Y93.89 Activity, other specified; Y92.89 Other specified places as the place of occurrence of the external cause; Y99.8 Other external cause status

== ENCOUNTER 2018-08-03 14:18 | Emergency (ER) | payer MEDICARE, MEDICAID ==
[~2018-08-03] VITALS: Ht 149.9 cm; Wt 48.5 kg
[2018-08-03 17:52] LABS: ABSOLUTE BASOPHILS 0.1 thou/uL (0.0-0.2); ABSOLUTE EOSINOPHILS 0.1 thou/uL (0.0-0.7); ABSOLUTE LYMPHOCYTES 0.9 thou/uL (0.8-5.3); ABSOLUTE MONOCYTES 0.4 thou/uL (0.0-1.2); BASOPHILS 1.4 %; EOSINOPHILS 0.9 %; HEMATOCRIT 30.8 % (37.0-47.0); HEMOGLOBIN 9.7 gm/dL (12.0-15.0); LYMPHOCYTES 12.5 %; MCH 26.4 pg (26.0-34.0); MCHC 31.6 g/dL (28.0-37.0); MCV 83.7 fL (80.0-100.0); MONOCYTES 5.7 %; MPV 8.3 fl. (7.2-11.1); NUCLEATED RBCS 0 /100WBC; PLATELET COUNT* 193 thou/uL (150-400); POLYS 79.5 %; RBC 3.68 mil/uL (4.20-5.00); RDW-CV 21.5 % (10.5-14.5); WBC 7.5 thou/uL (4.0-11.0)
[2018-08-03 18:00] LABS: CALCIUM 8.5 mg/dL (8.5-10.1); CREATININE 4.4 mg/dL (0.6-1.3); POTASSIUM 4.7 mmol/L (3.5-5.1)
[2018-08-03 18:05] LABS: ALBUMIN 2.6 g/dL (3.4-5.0); TOTAL BILIRUBIN 0.6 mg/dL (<0.1-1.0); TOTAL PROTEIN 6.2 g/dL (6.4-8.2)
[2018-08-03 18:21] LABS: POLYCHROMASIA 3+
[2018-08-03 20:03] VITALS: BP 187/139
== END 2018-08-03 20:05 | disposition left against medical advice (07) ==
LOC: M.ERS 14:18
PROVIDERS: Physician Assistant
DX: I12.0 Hypertensive chronic kidney disease with stage 5 chronic kidney disease or end stage renal disease (principal); N18.6 End stage renal disease; N17.9 Acute kidney failure, unspecified; J90 Pleural effusion, not elsewhere classified; F32.9 Major depressive disorder, single episode, unspecified; J45.909 Unspecified asthma, uncomplicated; F17.210 Nicotine dependence, cigarettes, uncomplicated; Z99.2 Dependence on renal dialysis; Z87.01 Personal history of pneumonia (recurrent); Z91.040 Latex allergy status

== ENCOUNTER 2018-08-21 22:24 | Emergency (ER) | payer MEDICARE, MEDICAID ==
[~2018-08-21] VITALS: Ht 149.9 cm; Wt 55.3 kg
[2018-08-21] MEDS ORDERED: ALBUTEROL2.5 MG/0.1 INH (22:44)
[2018-08-22 00:34] LABS: INFLUENZA A ANTIGEN None Detected (None Detect); INFLUENZA B ANTIGEN None Detected (None Detect)
[2018-08-22 01:17] VITALS: BP 174/130
== END 2018-08-22 01:17 | disposition home or self-care (01) ==
LOC: M.ERS 22:24
PROVIDERS: Emergency Medicine
DX: J45.909 Unspecified asthma, uncomplicated (principal); I12.0 Hypertensive chronic kidney disease with stage 5 chronic kidney disease or end stage renal disease; N18.6 End stage renal disease; F32.9 Major depressive disorder, single episode, unspecified; F17.210 Nicotine dependence, cigarettes, uncomplicated; Z99.2 Dependence on renal dialysis; Z91.040 Latex allergy status

== ENCOUNTER 2018-09-06 20:41 | Emergency (ER) | payer MEDICARE, MEDICAID ==
[~2018-09-06] VITALS: Ht 149.9 cm; Wt 55.3 kg
[~2018-09-06 20:41] MED LIST changes: +ALBUTEROL2.5 MG/0.1 INH
[2018-09-06 23:30] LABS: ABSOLUTE BASOPHILS 0.1 thou/uL (0.0-0.2); ABSOLUTE EOSINOPHILS 0.1 thou/uL (0.0-0.7); ABSOLUTE LYMPHOCYTES 0.9 thou/uL (0.8-5.3); ABSOLUTE MONOCYTES 0.5 thou/uL (0.0-1.2); ABSOLUTE NEUTROPHILS 7.4 thou/uL (1.6-8.1); BASOPHILS 1.1 %; EOSINOPHILS 1.3 %; HEMATOCRIT 27.1 % (37.0-47.0); HEMOGLOBIN 8.9 gm/dL (12.0-15.0); LYMPHOCYTES 10.1 %; MCH 27.2 pg (26.0-34.0); MCHC 32.7 g/dL (28.0-37.0); MONOCYTES 5.3 %; MPV 7.8 fl. (7.2-11.1); NUCLEATED RBCS 0 /100WBC; PLATELET COUNT* 160 thou/uL (150-400); POLYS 82.2 %; RBC 3.26 mil/uL (4.20-5.00); RDW-CV 23.8 % (10.5-14.5)
[2018-09-06 23:40] LABS: CALCIUM 8.3 mg/dL (8.5-10.1); CREATININE 3.7 mg/dL (0.6-1.3); POTASSIUM 4.5 mmol/L (3.5-5.1)
[2018-09-06 23:45] LABS: ALBUMIN 2.6 g/dL (3.4-5.0); TOTAL BILIRUBIN 0.4 mg/dL (<0.1-1.0); TOTAL PROTEIN 6.1 g/dL (6.4-8.2)
[2018-09-06 23:46] LABS: INR 1.2; PROTIME 11.8 Seconds (9.20-11.50)
[2018-09-07 00:38] VITALS: BP 124/90
[2018-09-07 02:45] LABS: ANISOCYTOSIS 2+; PLATELET ESTIMATE ADEQUATE
== END 2018-09-07 00:38 | disposition home or self-care (01) ==
LOC: M.ERS 20:41
PROVIDERS: Nurse Practitioner Family
DX: S30.1XXA Contusion of abdominal wall, initial encounter (principal); F32.9 Major depressive disorder, single episode, unspecified; J45.909 Unspecified asthma, uncomplicated; I12.0 Hypertensive chronic kidney disease with stage 5 chronic kidney disease or end stage renal disease; N18.6 End stage renal disease; F17.210 Nicotine dependence, cigarettes, uncomplicated; Z99.2 Dependence on renal dialysis; Z87.01 Personal history of pneumonia (recurrent); Z91.040 Latex allergy status; X58.XXXA Exposure to other specified factors, initial encounter; Y93.89 Activity, other specified; Y92.89 Other specified places as the place of occurrence of the external cause; Y99.8 Other external cause status

== ENCOUNTER 2018-09-12 18:01 | Emergency (ER) | payer MEDICARE, MEDICAID ==
[~2018-09-12] VITALS: Ht 149.9 cm; Wt 49.4 kg
[2018-09-12] MEDS ORDERED: ROXICODONE5 M2 PO (18:42)
[2018-09-12 18:59] VITALS: BP 176/120
== END 2018-09-12 19:00 | disposition home or self-care (01) ==
LOC: M.ERS 18:01
DX: G89.18 Other acute postprocedural pain (principal); R10.9 Unspecified abdominal pain; I12.0 Hypertensive chronic kidney disease with stage 5 chronic kidney disease or end stage renal disease; N18.6 End stage renal disease; J45.909 Unspecified asthma, uncomplicated; F32.9 Major depressive disorder, single episode, unspecified; F17.210 Nicotine dependence, cigarettes, uncomplicated; Z99.2 Dependence on renal dialysis; Z91.040 Latex allergy status; Z87.01 Personal history of pneumonia (recurrent)

== ENCOUNTER 2018-09-18 14:06 | Emergency (ER) | payer MEDICARE, MEDICAID ==
[~2018-09-18] VITALS: Ht 149.9 cm; Wt 47.6 kg
[~2018-09-18 14:06] MED LIST changes: +ROXICODONE5 M2 PO
[2018-09-18 15:11] VITALS: BP 160/89
[2018-09-19] MEDS ORDERED: PERCOCET 5-3251 EACH PO (18:26)
== END 2018-09-18 14:55 | disposition home or self-care (01) ==
LOC: M.ERS 14:06
DX: R07.89 Other chest pain (principal); J45.909 Unspecified asthma, uncomplicated; I12.0 Hypertensive chronic kidney disease with stage 5 chronic kidney disease or end stage renal disease; N18.6 End stage renal disease; Z99.2 Dependence on renal dialysis; F32.9 Major depressive disorder, single episode, unspecified; F17.210 Nicotine dependence, cigarettes, uncomplicated; Z91.040 Latex allergy status

== ENCOUNTER 2018-09-19 16:59 | Emergency (ER) | payer OTHER, MEDICARE, MEDICAID ==
[~2018-09-19] VITALS: Ht 149.9 cm; Wt 49.9 kg
[2018-09-19] MEDS ORDERED: PERCOCET 5-3251 EACH PO (18:26)
[2018-09-19 18:40] VITALS: BP 172/99
== END 2018-09-19 18:41 | disposition home or self-care (01) ==
LOC: M.ERS 16:59
DX: M25.511 Pain in right shoulder (principal); L98.9 Disorder of the skin and subcutaneous tissue, unspecified; J45.909 Unspecified asthma, uncomplicated; I12.0 Hypertensive chronic kidney disease with stage 5 chronic kidney disease or end stage renal disease; N18.6 End stage renal disease; Z99.2 Dependence on renal dialysis; F32.9 Major depressive disorder, single episode, unspecified; Z86.14 Personal history of Methicillin resistant Staphylococcus aureus infection; V49.49XA Driver injured in collision with other motor vehicles in traffic accident, initial encounter; Y93.89 Activity, other specified; Y92.89 Other specified places as the place of occurrence of the external cause; Y99.8 Other external cause status

== ENCOUNTER 2018-10-02 16:53 | Emergency (ER) | payer MEDICARE, MEDICAID ==
[~2018-10-02] VITALS: Ht 149.9 cm; Wt 50.8 kg
[2018-10-02] MEDS ORDERED: PERCOCET PO (17:42)
[2018-10-02] MEDS ORDERED: IPRAT-ALBUT 0.5-3 ML PO (17:49)
[2018-10-02] MEDS ORDERED: ALBUTEROL2.5 MG/31 INH (17:49)
[2018-10-02 18:00] VITALS: BP 204/141
== END 2018-10-02 18:01 | disposition home or self-care (01) ==
LOC: M.ERS 16:53
DX: M79.18 Myalgia, other site (principal); J45.901 Unspecified asthma with (acute) exacerbation; J45.909 Unspecified asthma, uncomplicated; I12.0 Hypertensive chronic kidney disease with stage 5 chronic kidney disease or end stage renal disease; N18.6 End stage renal disease; Z99.2 Dependence on renal dialysis; F32.9 Major depressive disorder, single episode, unspecified; F17.210 Nicotine dependence, cigarettes, uncomplicated; Z91.040 Latex allergy status

== ENCOUNTER 2018-10-03 15:01 | Inpatient (IN) | payer MEDICARE, MEDICAID ==
[~2018-10-03] VITALS: Ht 149.9 cm; Wt 48.5 kg
--- NOTE | ~2018-10-03 | CON ---
[address] [address] CONSULTATION Name: CALOS ROSARIO Room: [address] IN M.R.#: [id number] Admission: 10/03/18 Attend Phys: Laura Gao MD Discharge: Date of : 94 Report #: [id number] THIS REPORT FOR: //name// CC: Subhash Quirino Gao DATE OF SERVICE: 10/04/2018 REQUESTING PHYSICIAN: Dirk Gifford M.D. REASON FOR CONSULTATION: Assistance providing dialysis. HISTORY OF PRESENT ILLNESS: The patient is a 23-year-old female with medical history significant for end-stage renal disease, medical noncompliance, valvular heart disease, multiple admissions to [facility] and [facility] due to volume overloaded. She presents to the Emergency Room on 10/03/2018 with complaints of shortness of breath, fever, chills, and cough. PAST MEDICAL HISTORY: As I mentioned earlier in addition to this problem, she has history of hypertension, history of a failed fistula, history of depression, history of syphilis, history of recurrent pneumonitis and history of asthma. SOCIAL HISTORY: Unfortunately, she is not able to be compliant with her fluid restriction and dietary restriction. MEDICATIONS: Reviewed. FAMILY HISTORY: Noncontributory. REVIEW OF SYSTEMS: Positive for symptoms as mentioned earlier. PHYSICAL EXAMINATION: GENERAL: She is awake, alert. VITAL SIGNS: Her blood pressure is 188/148, heart rate 109, temperature 37.3. HEENT: Pupils are round. NECK: With elevated JVD. LUNGS: With coarse breath sounds and wheezes, decreased breath sounds at both bases. CARDIOVASCULAR: Distant heart tones. ABDOMEN: Soft. LABORATORY DATA: No edema. Chest x-ray revealed low lung volumes. [address] [place] [address] CONSULTATION Name: CALOS ROSARIO Room: [address]#: [id number] Admission: 10/03/18 Attend Phys: Laura Gao MD Discharge: Date of : 94 Report #: [id number] She also had some enlarged cardiac silhouette. ASSESSMENT: 1. End-stage renal disease. 2. Volume overloaded. 3. Valvular heart disease. 4. Medical noncompliance. PLAN: We will dialyze her today. The patient needs care at [facility] as she cannot provide care for herself. By: 1047 [id number] Haynes MD /nt
[~2018-10-03 15:01] MED LIST changes: +ALBUTEROL2.5 MG/31 INH; +IPRAT-ALBUT 0.5-3 ML PO; +PERCOCET PO
[2018-10-03 15:17] VITALS: BP 189/137
[2018-10-03 18:03] LABS: HEMATOCRIT 35.8 % (37.0-47.0); HEMOGLOBIN 10.8 gm/dL (12.0-15.0); MCH 27.5 pg (26.0-34.0); MCHC 30.2 g/dL (28.0-37.0); MCV 91.1 fL (80.0-100.0); MPV 8.1 fl. (7.2-11.1); NUCLEATED RBCS 0 /100WBC; PLATELET COUNT* 310 thou/uL (150-400); RBC 3.93 mil/uL (4.20-5.00); WBC 13.3 thou/uL (4.0-11.0)
[2018-10-03 18:19] LABS: CALCIUM 9.2 mg/dL (8.5-10.1); CREATININE 7.6 mg/dL (0.6-1.3); POTASSIUM 5.5 mmol/L (3.5-5.1)
[2018-10-03 18:24] LABS: ALBUMIN 3.3 g/dL (3.4-5.0); TOTAL BILIRUBIN 0.7 mg/dL (<0.1-1.0); TOTAL PROTEIN 7.3 g/dL (6.4-8.2)
[2018-10-03 18:46] LABS: PCO2 31.5 mmHg (35.0-45.0); PO2 72.6 mmHg (75.0-100.0); pH 7.431 (7.340-7.450)
[2018-10-03 18:51] LABS: ABSOLUTE EOSINOPHILS 0.1 thou/uL (0.0-0.7); ABSOLUTE LYMPHOCYTES 1.6 thou/uL (0.8-5.3); ABSOLUTE MONOCYTES 0.9 thou/uL (0.0-1.2); ABSOLUTE NEUTROPHILS 10.6 thou/uL (1.6-8.1)
[2018-10-03 18:55] LABS: ANISOCYTOSIS 2+; MICROCYTES 1+; PLATELET ESTIMATE ADEQUATE
[2018-10-03 18:56] LABS: HYPOCHROMASIA Occasional; POLYCHROMASIA Occasional
[2018-10-03 19:50] VITALS: BP 187/138
[2018-10-03 19:57] VITALS: BP 180/129
[2018-10-04] VITALS: BP 174/136
[2018-10-04 03:52] VITALS: BP 188/140
[2018-10-04 08:13] LABS: APTT 25.7 Seconds (25.0-31.3); INR 1.4; PROTIME 14.1 Seconds (9.20-11.50)
[2018-10-04 09:00] VITALS: BP 171/124
[2018-10-04 12:05] VITALS: BP 153/113
[2018-10-04 20:00] VITALS: BP 143/99
[2018-10-05] VITALS: BP 108/81
[2018-10-05 04:00] VITALS: BP 122/86
[2018-10-05 05:23] LABS: ABSOLUTE BASOPHILS 0.1 thou/uL (0.0-0.2); ABSOLUTE NEUTROPHILS 9.6 thou/uL (1.6-8.1); BASOPHILS 0.7 %; EOSINOPHILS 0.3 %; HEMATOCRIT 34.9 % (37.0-47.0); HEMOGLOBIN 10.9 gm/dL (12.0-15.0); LYMPHOCYTES 8.6 %; MCH 28.1 pg (26.0-34.0); MCHC 31.2 g/dL (28.0-37.0); MCV 90.1 fL (80.0-100.0); MONOCYTES 8.6 %; MPV 8.2 fl. (7.2-11.1); NUCLEATED RBCS 0 /100WBC; PLATELET COUNT* 261 thou/uL (150-400); POLYS 81.8 %; RBC 3.87 mil/uL (4.20-5.00); RDW-CV 22.8 % (10.5-14.5); WBC 11.7 thou/uL (4.0-11.0)
[2018-10-05 05:34] LABS: CALCIUM 8.1 mg/dL (8.5-10.1); POTASSIUM 4.6 mmol/L (3.5-5.1)
[2018-10-05 08:15] VITALS: BP 111/79
--- NOTE | 2018-10-05 11:26 | CON ---
[address] [address] CONSULTATION Name: CALOS ROSARIO Room: [address] IN M.R.#: [id number] Admission: 10/03/18 Attend Phys: Laura Gao MD Discharge: Date of : 89 Report #: [id number] THIS REPORT FOR: //name// CC: Subhash Quirino Gao DATE OF SERVICE: 10/04/2018 INFECTIOUS DISEASE CONSULTATION ATTENDING PHYSICIAN: Dirk Gifford MD REASON FOR EVALUATION: Recommendation for antibiotic therapy. HISTORY OF PRESENT ILLNESS: Chart reviewed, patient examined. This is a 23-year-old with extensive medical history given her age. She has most notably end-stage renal disease, on hemodialysis now for a number of years. She continues to smoke and there is some degree of asthma, recurrent pneumonitis admitted through the Emergency Room with progressive shortness of breath, cough. She did have occasional chills. She has ongoing issues of chronic and severe generalized pain, she was unable to be more specific. She apparently has issues with recurrent ascites of uncertain etiology. She undergoes paracentesis on a fairly regular basis. She states this perhaps contributes to her worsening breathing difficulties at times. It is really difficult to get history from her at this point as she is moaning because she is in generalized pain. States OxyContin does nothing for her. She does have longstanding issues with being anxious. It is not clear that she has had significant gastrointestinal related complaints. It is difficult to ascertain while she eats and when she feels reasonably well. She is empirically started with ceftriaxone. Evaluation thus far noted lactic acid peaked at 2.7, repeat was 1.5. Blood cultures are sterile thus far. CBC: White count was 13.3, differential fairly unremarkable. ABGs: pH of 7.431, pO2 of 72.6 on room air. Chest x-ray did show some changes with many opacities on the mid lungs bilaterally. ALLERGIES: LISTED TO LATEX. CURRENT MEDICATIONS: Include acyclovir 400 p.o. t.i.d., sevelamer, senna, cinacalcet, metoprolol, pantoprazole, albuterol inhaler, oxycodone, ceftriaxone 1 g daily, p.r.n. analgesics, short course of methylprednisolone. PAST MEDICAL HISTORY: As described above, history of hypertension, end-stage renal disease on dialysis 3 times weekly, history of depression and anxiety, soft tissue infection due to MRSA. SOCIAL HISTORY: Smokes cigarettes on a daily basis. No ethanol. [place] [address] CONSULTATION Name: CALOS ROSARIO Room: [address] IN .R.#: [id number] Admission: 10/03/18 Attend Phys: Laura Gao MD Discharge: Date of : 94 Report #: [id number] FAMILY HISTORY: Noncontributory. REVIEW OF SYSTEMS: Limited due to her difficulty answering questions, complains of severe pain. PHYSICAL EXAMINATION: GENERAL: She appears chronically undernourished, is in moderate to marked distress, writhing in the bed. VITAL SIGNS: Temperature 99.1, T-max of 99.4, pulse 109, respirations 20, blood pressure 180/140. SKIN: Warm, several raised areas over lower extremities, there are no rashes. HEENT: Normocephalic. Extraocular muscles intact. NECK: Supple. LUNGS: Few scattered coarse breath sounds. HEART: Regular, tachycardic. I do not appreciate murmur. ABDOMEN: I do not appreciate any peritoneal signs. She may have some degree of tenderness. It is generally soft. EXTREMITIES: No cyanosis. GENITOURINARY: Deferred. RECTAL: Deferred. LABORATORY DATA: PT 14.1, INR of 1.4. Blood cultures sterile thus far. Lactic acid serially were 2.3, 2.7 and 1.5. CBC: White count of 13.3, H and H 12.8 and 35.8, platelets of 310. Differential generally unremarkable with neutrophilia. ABGs: pH 7.431, pCO2 of 31.5 and pO2 of 72.6. Electrolytes: Sodium 137, potassium 5.5, chloride 98, bicarbonate is 24, BUN and creatinine 44 and 7.6, anion gap of 15, glucose of 96. LFTs unremarkable with the exception of alkaline phosphatase of 258. Total protein is 7.3, albumin is 3.3, estimated GFR of 7. ASSESSMENT: Severe pain. Does have borderline hypoxemia, certainly clinically complains of dyspnea, does have an abnormal chest x-ray as well. It is difficult to ascertain if some of this is more chronic in nature. I think it is reasonable to continue empiric therapy and ceftriaxone is reasonable, should not be impacted by her marked kidney dysfunction at this point. Not hopeful any forthcoming sputum to assess from a microbiology standpoint. We will monitor expectantly. With a history of paracentesis, perhaps there is risk for spontaneous bacterial peritonitis as well. It is difficult to exam as she is in a position. Ceftriaxone should be reasonable coverage for that also. I will discuss with Dr. Gifford. <ELECTRONICALLY SIGNED> By: Mina Durand MD 10/05/18 1126 1155 1908Mina Durand MD /mo
[2018-10-05 12:00] VITALS: BP 119/83
[2018-10-05 14:21] VITALS: BP 119/83
[2018-10-05] MEDS ORDERED: CEFDINIR300 MG PO (14:27)
[2018-10-05] MEDS ORDERED: PREDNISONE 10 M10 MG PO (14:27)
[2018-10-05] MEDS ORDERED: PERCOCET PO (14:30)
[2018-10-05 16:00] VITALS: BP 136/105
== END 2018-10-05 16:05 | disposition home or self-care (01) | DRG 177 ==
LOC: M.ERS 15:01 → M.TBA-ER 18:23 → M.2W 18:23
PROVIDERS: Internal Medicine; Personal Emergency Response Attendant; Physician Assistant; ADMIT Family Medicine
PROC: 5A1D70Z Performance of Urinary Filtration, Intermittent, Less than 6 Hours Per Day (ICD-10-PCS; principal; 2018-10-04)
DX: J69.0 Pneumonitis due to inhalation of food and vomit (principal); N18.6 End stage renal disease; J96.21 Acute and chronic respiratory failure with hypoxia; F11.20 Opioid dependence, uncomplicated; I12.0 Hypertensive chronic kidney disease with stage 5 chronic kidney disease or end stage renal disease; J45.901 Unspecified asthma with (acute) exacerbation; R18.8 Other ascites; Z91.19 Patient's noncompliance with other medical treatment and regimen; Z86.14 Personal history of Methicillin resistant Staphylococcus aureus infection; Z91.040 Latex allergy status; Z79.1 Long term (current) use of non-steroidal anti-inflammatories (NSAID); Z79.899 Other long term (current) drug therapy; Z79.51 Long term (current) use of inhaled steroids

== ENCOUNTER 2018-10-13 20:47 | Emergency (ER) | payer MEDICARE, MEDICAID ==
[~2018-10-13] VITALS: Ht 149.9 cm; Wt 50.8 kg
[2018-10-13] MEDS ORDERED: NORCO 5-325 TA1 EAC1 PO (21:14)
[2018-10-13 21:36] VITALS: BP 170/118
== END 2018-10-13 21:38 | disposition home or self-care (01) ==
LOC: M.ERS 20:47
DX: G89.29 Other chronic pain (principal); R10.2 Pelvic and perineal pain; I10 Essential (primary) hypertension; I12.0 Hypertensive chronic kidney disease with stage 5 chronic kidney disease or end stage renal disease; N18.6 End stage renal disease; J45.909 Unspecified asthma, uncomplicated; Z99.2 Dependence on renal dialysis; F32.9 Major depressive disorder, single episode, unspecified; F17.210 Nicotine dependence, cigarettes, uncomplicated; Z91.040 Latex allergy status

== ENCOUNTER 2018-10-19 18:26 | Emergency (ER) | payer MEDICARE ==
[~2018-10-19] VITALS: Ht 149.9 cm; Wt 50.8 kg
[~2018-10-19 18:26] MED LIST changes: +NORCO 5-325 TA1 EAC1 PO
[2018-10-19 19:46] LABS: ABSOLUTE BASOPHILS 0.1 thou/uL (0.0-0.2); ABSOLUTE EOSINOPHILS 0.1 thou/uL (0.0-0.7); ABSOLUTE MONOCYTES 0.6 thou/uL (0.0-1.2); ABSOLUTE NEUTROPHILS 5.3 thou/uL (1.6-8.1); BASOPHILS 1.4 %; EOSINOPHILS 1.5 %; HEMATOCRIT 33.8 % (37.0-47.0); HEMOGLOBIN 10.6 gm/dL (12.0-15.0); LYMPHOCYTES 14.7 %; MCH 27.7 pg (26.0-34.0); MCHC 31.3 g/dL (28.0-37.0); MCV 88.4 fL (80.0-100.0); MONOCYTES 8.5 %; NUCLEATED RBCS 0 /100WBC; PLATELET COUNT* 229 thou/uL (150-400); POLYS 73.9 %; RBC 3.82 mil/uL (4.20-5.00); RDW-CV 19.9 % (10.5-14.5); WBC 7.1 thou/uL (4.0-11.0)
[2018-10-19 19:55] LABS: APTT 25.2 Seconds (25.0-31.3); INR 1.2; PROTIME 11.8 Seconds (9.20-11.50)
[2018-10-19 20:11] LABS: CALCIUM 8.9 mg/dL (8.5-10.1); CREATININE 4.7 mg/dL (0.6-1.3); POTASSIUM 5.2 mmol/L (3.5-5.1); TOTAL BILIRUBIN 0.5 mg/dL (<0.1-1.0)
[2018-10-19 22:51] VITALS: BP 157/113
--- NOTE | 2018-10-20 13:19 | EKG ---
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: Evin LYLE : 1995 Requested By: Celeste Franco Order Number: [id number] MD: Douglas Be Measurements Intervals [place] Rate: 90 P: 47 NM: 126 QRS: -18 QRSD: 96 T: 33 QT: 380 QTc: 465 Interpretive Statements Sinus rhythm Borderline left axis deviation RSR' in V1 or V2, probably normal variant Baseline wander in lead(s) I Compared to ECG 04/04/2018 14:04:22 RSR' in V1 or V2 now present Sinus tachycardia no longer present Ventricular premature complex(es) no longer present Atrial abnormality no longer present Left anterior fascicular block no longer present Myocardial infarct finding no longer present Electronically Signed On 10-20-2018 13:19:16 AIRFREIGHT LOADING SUPERVISOR by Douglas Be [email or web address] <ELECTRONICALLY SIGNED> By: Douglas Be MD, FAC 10/20/18 1319 54 54 Douglas Be MD, [facility] /EPI
[2018-10-20] MEDS ORDERED: PERCOCET 7.5-31 EACH PO (19:30)
== END 2018-10-19 22:54 | disposition home or self-care (01) ==
LOC: M.ERS 18:26
PROVIDERS: Physician Assistant
DX: K74.60 Unspecified cirrhosis of liver (principal); R18.8 Other ascites; I51.7 Cardiomegaly; E87.5 Hyperkalemia; R91.1 Solitary pulmonary nodule; G89.18 Other acute postprocedural pain; J45.909 Unspecified asthma, uncomplicated; F32.9 Major depressive disorder, single episode, unspecified; I12.0 Hypertensive chronic kidney disease with stage 5 chronic kidney disease or end stage renal disease; N18.6 End stage renal disease; Z87.01 Personal history of pneumonia (recurrent); Z86.14 Personal history of Methicillin resistant Staphylococcus aureus infection; Z99.2 Dependence on renal dialysis; Z91.040 Latex allergy status

== ENCOUNTER 2018-10-20 18:54 | Emergency (ER) | payer MEDICARE ==
[~2018-10-20] VITALS: Ht 149.9 cm; Wt 50.8 kg
[2018-10-20] MEDS ORDERED: PERCOCET 7.5-31 EACH PO (19:30)
[2018-10-20 19:51] VITALS: BP 194/138
== END 2018-10-20 20:19 | disposition home or self-care (01) ==
LOC: M.ERS 18:54
DX: M79.10 Myalgia, unspecified site (principal); F17.210 Nicotine dependence, cigarettes, uncomplicated; J45.909 Unspecified asthma, uncomplicated; I12.0 Hypertensive chronic kidney disease with stage 5 chronic kidney disease or end stage renal disease; N18.6 End stage renal disease; F32.9 Major depressive disorder, single episode, unspecified; Z99.2 Dependence on renal dialysis; Z91.040 Latex allergy status

== ENCOUNTER 2018-10-22 17:49 | Emergency (ER) | payer MEDICARE ==
[~2018-10-22] VITALS: Ht 149.9 cm; Wt 51.7 kg
[~2018-10-22 17:49] MED LIST changes: +PERCOCET 7.5-31 EACH PO
[2018-10-22 18:59] LABS: ABSOLUTE BASOPHILS 0.1 thou/uL (0.0-0.2); ABSOLUTE LYMPHOCYTES 0.8 thou/uL (0.8-5.3); ABSOLUTE MONOCYTES 0.5 thou/uL (0.0-1.2); ABSOLUTE NEUTROPHILS 4.7 thou/uL (1.6-8.1); EOSINOPHILS 0.8 %; HEMATOCRIT 33.9 % (37.0-47.0); HEMOGLOBIN 10.8 gm/dL (12.0-15.0); LYMPHOCYTES 13.4 %; MCH 27.3 pg (26.0-34.0); MCHC 31.8 g/dL (28.0-37.0); MCV 85.9 fL (80.0-100.0); MONOCYTES 8.4 %; MPV 8.2 fl. (7.2-11.1); NUCLEATED RBCS 0 /100WBC; PLATELET COUNT* 240 thou/uL (150-400); POLYS 75.4 %; RBC 3.95 mil/uL (4.20-5.00); RDW-CV 19.7 % (10.5-14.5); WBC 6.2 thou/uL (4.0-11.0)
[2018-10-22 19:17] LABS: POTASSIUM 4.3 mmol/L (3.5-5.1); TOTAL BILIRUBIN 1.2 mg/dL (<0.1-1.0); TOTAL PROTEIN 7.2 g/dL (6.4-8.2); TROPONIN-I LEVEL 0.13 ng/mL (<0.06)
[2018-10-22 19:18] LABS: CREATININE 3.7 mg/dL (0.6-1.3)
[2018-10-22 19:47] VITALS: BP 162/108
--- NOTE | 2018-10-23 15:06 | EKG ---
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: Evin THOMPSON : 1995 Requested By: Letha Spaulding Order Number: [id number] MD: Subhash Yo Measurements Intervals [place] Rate: 90 P: 45 TN: 128 QRS: -16 QRSD: 100 T: -1 QT: 400 QTc: 490 Interpretive Statements Sinus rhythm Borderline left axis deviation RSR' in V1 or V2, probably normal variant Borderline prolonged QT interval Compared to ECG 10/19/2018 19:55:04 No significant changes Electronically Signed On 10-23-2018 15:06:13 CDT by Subhash Yo [email or web address] <ELECTRONICALLY SIGNED> By: Subhash Yo MD, FACC 10/23/18 1506 1844 1844 Subhash Yo MD, FAC /EPI
== END 2018-10-22 19:49 | disposition home or self-care (01) ==
LOC: M.ERS 17:49
PROVIDERS: Nurse Practitioner Family
DX: M79.602 Pain in left arm (principal); R07.89 Other chest pain; G89.29 Other chronic pain; R10.30 Lower abdominal pain, unspecified; I10 Essential (primary) hypertension; J45.909 Unspecified asthma, uncomplicated; I12.0 Hypertensive chronic kidney disease with stage 5 chronic kidney disease or end stage renal disease; N18.6 End stage renal disease; Z99.2 Dependence on renal dialysis; F32.9 Major depressive disorder, single episode, unspecified; F17.210 Nicotine dependence, cigarettes, uncomplicated; Z91.040 Latex allergy status

== ENCOUNTER 2018-10-29 13:13 | Emergency (ER) | payer MEDICARE ==
[~2018-10-29] VITALS: Ht 149.9 cm; Wt 54.4 kg
[2018-10-29] MEDS ORDERED: KEFLEX500 M1 PO (14:48)
[2018-10-29 15:34] VITALS: BP 178/90
== END 2018-10-29 15:35 | disposition home or self-care (01) ==
LOC: M.ERS 13:13
DX: T82.7XXA Infection and inflammatory reaction due to other cardiac and vascular devices, implants and grafts, initial encounter (principal); Y82.8 Other medical devices associated with adverse incidents; I12.0 Hypertensive chronic kidney disease with stage 5 chronic kidney disease or end stage renal disease; N18.6 End stage renal disease; Z99.2 Dependence on renal dialysis; J45.909 Unspecified asthma, uncomplicated; F32.9 Major depressive disorder, single episode, unspecified; F17.210 Nicotine dependence, cigarettes, uncomplicated; Z91.040 Latex allergy status

== ENCOUNTER 2018-11-06 19:38 | Emergency (ER) | payer MEDICARE ==
[~2018-11-06] VITALS: Ht 149.9 cm; Wt 54.4 kg
[~2018-11-06 19:38] MED LIST changes: +KEFLEX500 M1 PO
[2018-11-06] MEDS ORDERED: PERCOCET 5-3251 EACH PO (19:58)
[2018-11-06] MEDS ORDERED: FLEXERIL PO (19:58)
[2018-11-06 20:34] VITALS: BP 206/157
== END 2018-11-06 20:30 | disposition home or self-care (01) ==
LOC: M.ERS 19:38
DX: M54.5 Low back pain (principal); J45.909 Unspecified asthma, uncomplicated; F32.9 Major depressive disorder, single episode, unspecified; I12.0 Hypertensive chronic kidney disease with stage 5 chronic kidney disease or end stage renal disease; N18.6 End stage renal disease; F17.210 Nicotine dependence, cigarettes, uncomplicated; Z99.2 Dependence on renal dialysis; Z91.040 Latex allergy status; Z86.14 Personal history of Methicillin resistant Staphylococcus aureus infection; Z87.01 Personal history of pneumonia (recurrent)

== ENCOUNTER 2018-11-17 19:53 | Emergency (ER) | payer MEDICARE ==
[~2018-11-17] VITALS: Ht 124.5 cm; Wt 54.4 kg
[~2018-11-17 19:53] MED LIST changes: +FLEXERIL PO
[2018-11-17] MEDS ORDERED: PERCOCET 5-3251 EACH PO (20:24)
[2018-11-17 20:54] VITALS: BP 136/79
== END 2018-11-17 20:54 | disposition home or self-care (01) ==
LOC: M.ERS 19:53
DX: G89.29 Other chronic pain (principal); M79.622 Pain in left upper arm; I12.0 Hypertensive chronic kidney disease with stage 5 chronic kidney disease or end stage renal disease; N18.6 End stage renal disease; Z99.2 Dependence on renal dialysis; J45.909 Unspecified asthma, uncomplicated; F32.9 Major depressive disorder, single episode, unspecified; Z86.14 Personal history of Methicillin resistant Staphylococcus aureus infection; F17.210 Nicotine dependence, cigarettes, uncomplicated; Z91.040 Latex allergy status

== ENCOUNTER 2018-11-20 19:50 | Emergency (ER) | payer MEDICARE ==
[~2018-11-20] VITALS: Ht 149.9 cm; Wt 54.4 kg
[2018-11-20 20:04] VITALS: BP 176/127
== END 2018-11-20 21:48 | disposition left against medical advice (07) ==
LOC: M.ERS 19:50
DX: Z53.21 Procedure and treatment not carried out due to patient leaving prior to being seen by health care provider (principal)

== ENCOUNTER 2018-11-23 13:19 | Emergency (ER) | payer MEDICARE ==
[~2018-11-23] VITALS: Ht 149.9 cm; Wt 56.7 kg
[2018-11-23 14:55] VITALS: BP 169/108
== END 2018-11-23 14:55 | disposition home or self-care (01) ==
LOC: M.ERS 13:19
DX: T82.838A Hemorrhage due to vascular prosthetic devices, implants and grafts, initial encounter (principal); F32.9 Major depressive disorder, single episode, unspecified; I12.0 Hypertensive chronic kidney disease with stage 5 chronic kidney disease or end stage renal disease; N18.6 End stage renal disease; J45.909 Unspecified asthma, uncomplicated; F17.210 Nicotine dependence, cigarettes, uncomplicated; Z99.2 Dependence on renal dialysis; Z91.040 Latex allergy status; Z86.14 Personal history of Methicillin resistant Staphylococcus aureus infection; Y84.8 Other medical procedures as the cause of abnormal reaction of the patient, or of later complication, without mention of misadventure at the time of the procedure; Y92.89 Other specified places as the place of occurrence of the external cause

== ENCOUNTER 2018-12-05 11:07 | Emergency (ER) | payer MEDICARE ==
[~2018-12-05] VITALS: Ht 147.3 cm; Wt 59.0 kg
[2018-12-05] MEDS ORDERED: OXYCODONE HCL 55 MG PO (11:54)
[2018-12-05 12:06] VITALS: BP 141/96
== END 2018-12-05 12:07 | disposition home or self-care (01) ==
LOC: M.ERS 11:07
DX: Z48.01 Encounter for change or removal of surgical wound dressing (principal); R14.0 Abdominal distension (gaseous); F17.210 Nicotine dependence, cigarettes, uncomplicated; J45.909 Unspecified asthma, uncomplicated; I12.0 Hypertensive chronic kidney disease with stage 5 chronic kidney disease or end stage renal disease; N18.6 End stage renal disease; F32.9 Major depressive disorder, single episode, unspecified; Z91.040 Latex allergy status

== ENCOUNTER 2018-12-07 17:51 | Emergency (ER) | payer MEDICARE ==
[~2018-12-07] VITALS: Ht 149.9 cm; Wt 51.7 kg
[~2018-12-07 17:51] MED LIST changes: +OXYCODONE HCL 55 MG PO
[2018-12-07 19:15] VITALS: BP 158/111
== END 2018-12-07 19:15 | disposition home or self-care (01) ==
LOC: M.ERS 17:51
DX: S40.812A Abrasion of left upper arm, initial encounter (principal); G89.29 Other chronic pain; I12.0 Hypertensive chronic kidney disease with stage 5 chronic kidney disease or end stage renal disease; N18.6 End stage renal disease; J45.909 Unspecified asthma, uncomplicated; F17.210 Nicotine dependence, cigarettes, uncomplicated; Z99.2 Dependence on renal dialysis; Z86.14 Personal history of Methicillin resistant Staphylococcus aureus infection; Z91.040 Latex allergy status; W01.0XXA Fall on same level from slipping, tripping and stumbling without subsequent striking against object, initial encounter; Y93.89 Activity, other specified; Y92.89 Other specified places as the place of occurrence of the external cause; Y99.8 Other external cause status

== ENCOUNTER 2018-12-08 16:25 | Emergency (ER) | payer MEDICARE ==
[~2018-12-08] VITALS: Ht 152.4 cm; Wt 49.9 kg
[2018-12-08 18:16] VITALS: BP 200/176
== END 2018-12-08 18:16 | disposition home or self-care (01) ==
LOC: M.ERS 16:25
DX: G89.29 Other chronic pain (principal); M79.602 Pain in left arm; I12.0 Hypertensive chronic kidney disease with stage 5 chronic kidney disease or end stage renal disease; N18.6 End stage renal disease; Z99.2 Dependence on renal dialysis; J45.909 Unspecified asthma, uncomplicated; F32.9 Major depressive disorder, single episode, unspecified; F17.210 Nicotine dependence, cigarettes, uncomplicated; Z91.040 Latex allergy status

== ENCOUNTER 2018-12-11 17:59 | Emergency (ER) | payer MEDICARE ==
[~2018-12-11] VITALS: Ht 149.9 cm; Wt 51.7 kg
[2018-12-11 18:44] VITALS: BP 132/99
== END 2018-12-11 18:44 | disposition home or self-care (01) ==
LOC: M.ERS 17:59
DX: G89.29 Other chronic pain (principal); M54.5 Low back pain; I12.0 Hypertensive chronic kidney disease with stage 5 chronic kidney disease or end stage renal disease; N18.6 End stage renal disease; F32.9 Major depressive disorder, single episode, unspecified; J45.909 Unspecified asthma, uncomplicated; F17.210 Nicotine dependence, cigarettes, uncomplicated; Z91.041 Radiographic dye allergy status; Z86.14 Personal history of Methicillin resistant Staphylococcus aureus infection; Z87.01 Personal history of pneumonia (recurrent); Z99.2 Dependence on renal dialysis

== ENCOUNTER 2018-12-16 18:34 | Emergency (ER) | payer MEDICARE, MEDICAID ==
[~2018-12-16] VITALS: Ht 149.9 cm; Wt 51.7 kg
[2018-12-16 19:27] LABS: ABSOLUTE BASOPHILS 0.1 thou/uL (0.0-0.2); ABSOLUTE EOSINOPHILS 0.1 thou/uL (0.0-0.7); ABSOLUTE LYMPHOCYTES 0.8 thou/uL (0.8-5.3); ABSOLUTE MONOCYTES 0.7 thou/uL (0.0-1.2); BASOPHILS 1.5 %; EOSINOPHILS 1.3 %; HEMATOCRIT 29.6 % (37.0-47.0); HEMOGLOBIN 9.5 gm/dL (12.0-15.0); LYMPHOCYTES 10.9 %; MCH 28.1 pg (26.0-34.0); MCHC 32.2 g/dL (28.0-37.0); MCV 87.3 fL (80.0-100.0); MONOCYTES 8.8 %; MPV 7.7 fl. (7.2-11.1); NUCLEATED RBCS 0 /100WBC; PLATELET COUNT* 237 thou/uL (150-400); POLYS 77.5 %; RDW-CV 20.7 % (10.5-14.5); WBC 7.7 thou/uL (4.0-11.0)
[2018-12-16 19:40] LABS: ALBUMIN 2.8 g/dL (3.4-5.0); CALCIUM 9.3 mg/dL (8.5-10.1); POTASSIUM 4.6 mmol/L (3.5-5.1); TOTAL BILIRUBIN 0.8 mg/dL (<0.1-1.0); TOTAL PROTEIN 7.2 g/dL (6.4-8.2)
[2018-12-16 19:52] LABS: ANISOCYTOSIS 2+; HYPOCHROMASIA 2+; MACROCYTES 2+; PLATELET ESTIMATE ADEQUATE; POLYCHROMASIA 2+
[2018-12-16 22:03] VITALS: BP 196/131
== END 2018-12-16 22:03 | disposition home or self-care (01) ==
LOC: M.ERS 18:34
PROVIDERS: Nurse Practitioner
DX: R14.0 Abdominal distension (gaseous) (principal); J45.909 Unspecified asthma, uncomplicated; I12.0 Hypertensive chronic kidney disease with stage 5 chronic kidney disease or end stage renal disease; N18.6 End stage renal disease; Z99.2 Dependence on renal dialysis; F32.9 Major depressive disorder, single episode, unspecified; F17.210 Nicotine dependence, cigarettes, uncomplicated; Z91.040 Latex allergy status

== ENCOUNTER 2018-12-19 10:35 | Emergency (ER) | payer MEDICARE, MEDICAID ==
[~2018-12-19] VITALS: Ht 149.9 cm; Wt 54.0 kg
[2018-12-19 11:13] LABS: HEMATOCRIT 31.5 % (37.0-47.0); HEMOGLOBIN 10.1 gm/dL (12.0-15.0); MCH 28.3 pg (26.0-34.0); MCHC 32.1 g/dL (28.0-37.0); MCV 88.2 fL (80.0-100.0); MPV 7.8 fl. (7.2-11.1); NUCLEATED RBCS 1 /100WBC; PLATELET COUNT* 259 thou/uL (150-400); RBC 3.57 mil/uL (4.20-5.00); RDW-CV 21.3 % (10.5-14.5); WBC 11.5 thou/uL (4.0-11.0)
[2018-12-19 11:21] LABS: CALCIUM 8.6 mg/dL (8.5-10.1); POTASSIUM 4.8 mmol/L (3.5-5.1)
[2018-12-19 11:25] LABS: ALBUMIN 2.9 g/dL (3.4-5.0); TOTAL BILIRUBIN 0.7 mg/dL (<0.1-1.0); TOTAL PROTEIN 7.2 g/dL (6.4-8.2)
[2018-12-19] MEDS ORDERED: HYDROCODON-ACE1 EAC7 PO (12:46)
[2018-12-19] MEDS ORDERED: CORTISPORIN OTI10 ML OTIC (12:46)
[2018-12-19] MEDS ORDERED: AMOX TR-K CLV1 EAC3 PO (12:46)
[2018-12-19 12:54] LABS: ABSOLUTE LYMPHOCYTES 1.4 thou/uL (0.8-5.3); ABSOLUTE MONOCYTES 0.6 thou/uL (0.0-1.2); ABSOLUTE NEUTROPHILS 9.5 thou/uL (1.6-8.1)
[2018-12-19 12:55] LABS: ANISOCYTOSIS 2+; GIANT PLATELETS RARE; MACROCYTES 1+; PLATELET ESTIMATE ADEQUATE; POLYCHROMASIA 1+
[2018-12-19 12:57] LABS: POIKILOCYTOSIS Occasional
[2018-12-19 13:51] VITALS: BP 159/118
== END 2018-12-19 13:51 | disposition home or self-care (01) ==
LOC: M.ERS 10:35
PROVIDERS: Emergency Medicine
DX: H66.91 Otitis media, unspecified, right ear (principal); H60.91 Unspecified otitis externa, right ear; J45.909 Unspecified asthma, uncomplicated; F32.9 Major depressive disorder, single episode, unspecified; I12.0 Hypertensive chronic kidney disease with stage 5 chronic kidney disease or end stage renal disease; N18.6 End stage renal disease; F17.210 Nicotine dependence, cigarettes, uncomplicated; Z91.040 Latex allergy status; Z86.14 Personal history of Methicillin resistant Staphylococcus aureus infection; Z99.2 Dependence on renal dialysis; Z87.01 Personal history of pneumonia (recurrent)

== ENCOUNTER 2018-12-20 15:56 | Emergency (ER) | payer MEDICARE, MEDICAID ==
[~2018-12-20] VITALS: Ht 149.9 cm; Wt 54.0 kg
[~2018-12-20 15:56] MED LIST changes: +AMOX TR-K CLV1 EAC3 PO; +CORTISPORIN OTI10 ML OTIC
[2018-12-20 17:01] LABS: ABSOLUTE BASOPHILS 0.1 thou/uL (0.0-0.2); ABSOLUTE EOSINOPHILS 0.1 thou/uL (0.0-0.7); ABSOLUTE MONOCYTES 0.5 thou/uL (0.0-1.2); ABSOLUTE NEUTROPHILS 7.1 thou/uL (1.6-8.1); BASOPHILS 0.9 %; EOSINOPHILS 0.9 %; HEMATOCRIT 30.3 % (37.0-47.0); HEMOGLOBIN 9.8 gm/dL (12.0-15.0); LYMPHOCYTES 11.7 %; MCH 28.5 pg (26.0-34.0); MCHC 32.2 g/dL (28.0-37.0); MCV 88.4 fL (80.0-100.0); MONOCYTES 5.4 %; NUCLEATED RBCS 1 /100WBC; PLATELET COUNT* 280 thou/uL (150-400); POLYS 81.1 %; RBC 3.43 mil/uL (4.20-5.00); RDW-CV 21.6 % (10.5-14.5); WBC 8.8 thou/uL (4.0-11.0)
[2018-12-20 17:10] LABS: CALCIUM 8.9 mg/dL (8.5-10.1); CREATININE 5.4 mg/dL (0.6-1.3); POTASSIUM 4.3 mmol/L (3.5-5.1)
[2018-12-20 17:20] LABS: ALBUMIN 2.8 g/dL (3.4-5.0); TOTAL BILIRUBIN 0.9 mg/dL (<0.1-1.0); TOTAL PROTEIN 7.2 g/dL (6.4-8.2)
[2018-12-20 18:09] LABS: PLATELET ESTIMATE ADEQUATE
[2018-12-20 18:10] LABS: ANISOCYTOSIS 2+; MICROCYTES Occasional
[2018-12-20 18:11] LABS: POLYCHROMASIA 1+
[2018-12-20 18:12] LABS: HYPOCHROMASIA 1+
[2018-12-20 19:45] VITALS: BP 153/115
== END 2018-12-20 19:45 | disposition short-term general hospital (02) ==
LOC: M.ERS 15:56
PROVIDERS: Nurse Practitioner Family
DX: H60.21 Malignant otitis externa, right ear (principal); J45.909 Unspecified asthma, uncomplicated; I12.0 Hypertensive chronic kidney disease with stage 5 chronic kidney disease or end stage renal disease; N18.6 End stage renal disease; F32.9 Major depressive disorder, single episode, unspecified; Z99.2 Dependence on renal dialysis; F17.210 Nicotine dependence, cigarettes, uncomplicated; Z91.040 Latex allergy status

== ENCOUNTER 2018-12-28 22:58 | Emergency (ER) | payer MEDICARE, MEDICAID ==
[~2018-12-28] VITALS: Ht 149.9 cm; Wt 40.8 kg
[2018-12-29 00:08] VITALS: BP 140/99
== END 2018-12-29 00:10 | disposition home or self-care (01) ==
LOC: M.ERS 22:58
DX: S30.1XXA Contusion of abdominal wall, initial encounter (principal); I12.0 Hypertensive chronic kidney disease with stage 5 chronic kidney disease or end stage renal disease; N18.6 End stage renal disease; J45.909 Unspecified asthma, uncomplicated; F32.9 Major depressive disorder, single episode, unspecified; F17.210 Nicotine dependence, cigarettes, uncomplicated; Z86.14 Personal history of Methicillin resistant Staphylococcus aureus infection; Z99.2 Dependence on renal dialysis; Z91.040 Latex allergy status; X58.XXXA Exposure to other specified factors, initial encounter; Y93.89 Activity, other specified; Y92.89 Other specified places as the place of occurrence of the external cause; Y99.8 Other external cause status

== ENCOUNTER 2019-01-02 18:46 | Emergency (ER) | payer MEDICARE, MEDICAID ==
[~2019-01-02] VITALS: Ht 149.9 cm; Wt 40.8 kg
[2019-01-02 22:17] LABS: ABSOLUTE BASOPHILS 0.1 thou/uL (0.0-0.2); ABSOLUTE EOSINOPHILS 0.1 thou/uL (0.0-0.7); ABSOLUTE LYMPHOCYTES 0.8 thou/uL (0.8-5.3); ABSOLUTE MONOCYTES 0.7 thou/uL (0.0-1.2); ABSOLUTE NEUTROPHILS 5.9 thou/uL (1.6-8.1); BASOPHILS 1.1 %; EOSINOPHILS 1.7 %; HEMATOCRIT 34.9 % (37.0-47.0); HEMOGLOBIN 10.7 gm/dL (12.0-15.0); LYMPHOCYTES 10.1 %; MCH 27.7 pg (26.0-34.0); MCHC 30.8 g/dL (28.0-37.0); MCV 90.1 fL (80.0-100.0); MONOCYTES 9.5 %; NUCLEATED RBCS 1 /100WBC; PLATELET COUNT* 294 thou/uL (150-400); POLYS 77.6 %; RBC 3.87 mil/uL (4.20-5.00); RDW-CV 20.8 % (10.5-14.5); WBC 7.6 thou/uL (4.0-11.0)
[2019-01-02 22:30] LABS: CALCIUM 8.7 mg/dL (8.5-10.1)
[2019-01-02 22:32] LABS: POTASSIUM 6.2 mmol/L (3.5-5.1)
[2019-01-02 22:35] LABS: ALBUMIN 2.9 g/dL (3.4-5.0); TOTAL PROTEIN 7.3 g/dL (6.4-8.2)
[2019-01-02 23:11] LABS: MICROCYTES Occasional
[2019-01-02 23:12] LABS: ANISOCYTOSIS 2+; PLATELET ESTIMATE ADEQUATE; POLYCHROMASIA Occasional
[2019-01-02 23:13] LABS: OVALOCYTES Occasional
[2019-01-02 23:58] VITALS: BP 200/140
== END 2019-01-03 | disposition home or self-care (01) ==
LOC: M.ERS 18:46
PROVIDERS: Physician Assistant
DX: S20.211A Contusion of right front wall of thorax, initial encounter (principal); I12.0 Hypertensive chronic kidney disease with stage 5 chronic kidney disease or end stage renal disease; N18.6 End stage renal disease; Z99.2 Dependence on renal dialysis; J45.909 Unspecified asthma, uncomplicated; F32.9 Major depressive disorder, single episode, unspecified; F17.210 Nicotine dependence, cigarettes, uncomplicated; Z91.040 Latex allergy status; V87.7XXA Person injured in collision between other specified motor vehicles (traffic), initial encounter; Y93.89 Activity, other specified; Y92.89 Other specified places as the place of occurrence of the external cause; Y99.8 Other external cause status